=== PATIENT | female | born 1930 | race Caucasian/White ===

== ENCOUNTER → 2018-04-11 06:00 | Outpatient (CLI) | payer OTHER ==
[~2018-04-11 06:00] MED LIST: COZAAR100 MG; FORTAMET500 MG; GABAPENTIN300 MG; SYNTHROID88 MCG
== END | disposition home or self-care (01) ==
LOC: LAB 06:00 → SURH 04-25 10:00 → EDSTATUS 04-25 10:00
DX: M50.00 Cervical disc disorder with myelopathy, unspecified cervical region (principal); Z01.812 Encounter for preprocedural laboratory examination